=== PATIENT | male | born 1990 | race Caucasian/White ===

== ENCOUNTER 2017-11-14 06:01 | Emergency (ER) | payer BC ==
[~2017-11-14] VITALS: Ht 190.5 cm; Wt 111.8 kg
[2017-11-14 06:46] LABS: BASOPHILS # (AUTO) 0.04 x10^3/uL (0-0.1); BASOPHILS % (AUTO) 0 % (0-1); EOSINOPHILS % (AUTO) 2 % (1-7); LYMPHOCYTES % (AUTO) 30 % (22-44); MD NO; MEAN CORPUSCULAR HGB CONC 34.5 g/dL (33.2-36.2); MEAN CORPUSCULAR VOLUME 95.7 fL (81-97); MEAN PLATELET VOLUME 9.9 fL (7.4-10.4); MONOCYTES # (AUTO) 0.67 x10^3/uL (0.2-0.8); MONOCYTES % (AUTO) 8 % (2-9); NEUTROPHILS # (AUTO) 5.17 x10^3/uL (1.8-6.8); NEUTROPHILS % (AUTO) 60 % (42-75); PLATELET COUNT 188 x10^3/uL (130-400); RED BLOOD COUNT 5.07 x10^6/uL (4.38-5.82); RED CELL DISTRIBUTION WIDTH 12.7 % (9.4-14.8)
[2017-11-14 06:55] LABS: PROTHROMBIN TIME 10.3 Seconds (9.6-11.5)
[2017-11-14] MEDS ORDERED: ACETYLCYSTEINE 15,000 MG in DEXTROSE 5% 200 ML IV ONE (07:00)
[2017-11-14 07:23] LABS: AMPHETAMINE SCREEN, URINE Negative (Negative); BARBITURATE SCREEN, URINE Negative (Negative); BENZODIAZEPINE SCREEN, URINE Negative (Negative); CANNABINOID SCREEN, URINE Negative (Negative); COCAINE SCREEN, URINE Negative (Negative); METHADONE SCREEN, URINE Negative (Negative); OPIATE SCREEN, URINE Negative (Negative)
[2017-11-14 07:33] LABS: ALANINE AMINOTRANSFERASE 64 U/L (12-78); ALBUMIN 3.8 g/dL (3.4-5.0); ANION GAP 10 mmol/L (5-15); CALCIUM 8.6 mg/dL (8.5-10.1); CHLORIDE 111 mmol/L (98-107); CREATININE 1.07 mg/dL (0.7-1.3)
[2017-11-14 07:35] LABS: ACETAMINOPHEN 2 mcg/mL (10-30); ALKALINE PHOSPHATASE 64 U/L (45-117); BILIRUBIN,TOTAL 0.4 mg/dL (0.2-1.0); TOTAL PROTEIN 7.1 g/dL (6.4-8.2)
[2017-11-14 07:38] LABS: SALICYLATE LEVEL < 1.7 mg/dL (2.8-20.0)
[2017-11-14] MEDS ORDERED: ACETYLCYSTEINE 5,000 MG in DEXTROSE 5% 500 ML IV ONE (08:00)
[2017-11-14] MEDS ORDERED: ONDANSETRON ODT 4 MG ONE (08:03)
[2017-11-14] MEDS ORDERED: ONDANSETRON ODT 4 MG PO ONE (08:30)
[2017-11-14 08:40] VITALS: BP 146/96
[2017-11-14] MEDS ORDERED: ACETYLCYSTEINE 10,000 MG in DEXTROSE 5% 1,000 ML IV ONE (12:00)
== END 2017-11-14 09:01 | disposition left against medical advice (07) ==
LOC: ED 07:30 → UNDOADMIN 07:31 → EDIP 07:31 → ED 07:54
DX: T39.1X1A Poisoning by 4-Aminophenol derivatives, accidental (unintentional), initial encounter (principal); Z87.891 Personal history of nicotine dependence; Y92.9 Unspecified place or not applicable; Z86.73 Personal history of transient ischemic attack (TIA), and cerebral infarction without residual deficits
CPT/HCPCS: 36415; 80053; 80307; 80329; 82140; 85025; 85610; 96365; 99284; J0132; J7060; Q0162; G0480